=== PATIENT | female | born 1965 | race Caucasian/White ===

== ENCOUNTER → 2019-10-17 10:01 | Outpatient (BNVA) | payer SELFPAY | PROVIDERS: Family Provider Family Medicine; PCP Family Medicine; Visit Provider Family Medicine | DX: D72.819 Decreased white blood cell count, unspecified (principal); Z87.898 Personal history of other specified conditions | CPT/HCPCS: 85025 ==

== ENCOUNTER → 2019-12-03 08:49 | Outpatient (BNVA) | payer SELFPAY | PROVIDERS: Family Provider Family Medicine; PCP Family Medicine; Visit Provider Family Medicine | DX: R00.2 Palpitations (principal) | CPT/HCPCS: 85025 ==

== ENCOUNTER → 2020-02-06 08:31 | Outpatient (BNVA) | payer SELFPAY | PROVIDERS: Family Provider Family Medicine; PCP Family Medicine; Visit Provider Family Medicine | DX: R00.2 Palpitations (principal); Z87.898 Personal history of other specified conditions | CPT/HCPCS: 85025 ==

== ENCOUNTER → 2020-08-05 09:09 | Outpatient (BNVA) | payer SELFPAY | PROVIDERS: Family Provider Family Medicine; PCP Family Medicine; Visit Provider Family Medicine | DX: R00.2 Palpitations (principal) | CPT/HCPCS: 85025 ==

== ENCOUNTER → 2021-02-02 08:39 | Outpatient (BNVA) | payer OTHER, SELFPAY | PROVIDERS: Family Provider Family Medicine; PCP Family Medicine; Visit Provider Family Medicine | DX: R89.9 Unspecified abnormal finding in specimens from other organs, systems and tissues (principal) | CPT/HCPCS: 80053; 80061; 85025 ==

== ENCOUNTER → 2021-05-25 10:17 | Outpatient (BNVA) | payer OTHER, SELFPAY | PROVIDERS: Family Provider Family Medicine; PCP Family Medicine; Visit Provider Family Medicine | DX: I47.1 Supraventricular tachycardia (principal) | CPT/HCPCS: 80053; 85025 ==

== ENCOUNTER → 2022-04-05 08:18 | Outpatient (BNVA) | payer SELFPAY | PROVIDERS: Family Provider Family Medicine; PCP Family Medicine | DX: Z13.6 Encounter for screening for cardiovascular disorders (principal) | CPT/HCPCS: 80061; 82947; 83036 ==

== ENCOUNTER 2022-11-05 08:57 | Outpatient (CLI) | payer OTHER, SELFPAY ==
--- NOTE | 2022-11-05 09:30 | USCV_ITS ---
Derejeazucena Katarzyna Age: 57 Gender: F : 1965 Exam Date: 11/05/2022 09:37 Ordering Phys: Kaykay Carty Technologist: Maggie Solis [place] [facility] [place] Ind[place]: MVP AND MR BP: 112 / 64 HR: 48 Rhythm: Sinus Technical Quality: Adequate MEASUREMENTS (Male / Female) Normal Values 2D ECHO LV Diastolic Diameter PLAX 4.4 cm 4.2 - 5.9 / 3.9 - 5.3 cm LV Systolic Diameter PLAX 3.3 cm LV Chamber Size 3.2 cm IVS Diastolic Thickness 0.9 cm 0.6 - 1.0 / 0.6 - 0.9 cm IVS Systolic Thickness 1.2 cm LVPW Diastolic Thickness 1.0 cm 0.6 - 1.0 / 0.6 - 0.9 cm LVPW Systolic Thickness 1.2 cm RV Chamber Size 3.1 cm LVOT Diameter 2.0 cm LV Ejection Fraction 2D Teich 51.1 % LV Ejection Fraction MOD 2C 50.2 % LV Ejection Fraction 2C AL 50.7 % LA Diameter 2.9 cm LA Width 3.0 cm LA Height 3.3 cm RA Width 3.2 cm RA Height 3.2 cm Aorta at Sinotubular Diameter 3.5 cm IVC Diameter 1.4 cm M-MODE Aortic Annulus Diameter 3.6 cm LA Ao Ratio MM 0.9 MV E Point Septal Separation 0.4 cm DOPPLER AV Peak Velocity 106.3 cm/s LVOT Peak Velocity 73.3 cm/s AV Area Cont Eq vti 2.0 cm squared AV Area Cont Eq pk 2.2 cm squared MV Area PHT 2.6 cm squared Mitral E to A Ratio 1.5 MV E' Velocity 44.0 cm/s Mitral E to MV E' Ratio 6.1 Mitral E to LV E' Lateral Ratio 6.3 Mitral E to LV E' Septal Ratio 6.0 TR Peak Velocity 208.1 cm/s TR Peak Gradient 17.3 mmHg TR Mean Velocity 166.6 cm/s TR Mean Gradient 11.9 mmHg TR Velocity Time Integral 65.9 cm TV Peak E Velocity 45.0 cm/s Right Atrial Pressure 3.0 mmHg Pulmonary Artery Systolic Pressu 20.3 mmHg RV Acceleration Time 0.2 s RV Ejection Time 0.4 s RV AcT/ET 0.4 FINDINGS Left Ventricle Left ventricle is normal in size. LV systolic function is mildly reduced with EF of 45-50%. Mild global hypokinesis seen. Right Ventricle Normal in size and function Right Atrium Normal in size Left Atrium Dilated Mitral Valve Mitral valve prolapse is seen. Mild to moderate mitral regurgitation seen. Aortic Valve Structurally normal aortic valve. No significant stenosis or regurgitation seen. Tricuspid Valve Mild tricuspid regurgitation. Pulmonary artery systolic pressure is normal. Pulmonic Valve Not well visualized. Mild pulmonic regurgitation Pericardium Trivial pericardial effusion Aorta Normal in size IVC Appears to be normal CONCLUSIONS LV systolic function is mildly reduced with EF of 45 to 50%. Left atrial dilation Mild to moderate mitral regurgitation Mild tricuspid regurgitation Mild pulmonic regurgitation Trivial pericardial effusion. No comparison studies are available. Shayan Cullen MD (Electronically Signed) Final Date: 19 November 2022 15:15 S
== END 2022-11-05 08:58 | disposition home or self-care (01) ==
PROVIDERS: PCP Family Medicine; Visit Provider Nurse Practitioner Family
DX: I47.1 Supraventricular tachycardia (principal); Z86.79 Personal history of other diseases of the circulatory system
CPT/HCPCS: 93306

== ENCOUNTER 2022-12-13 06:16 | Outpatient (CLI) | payer OTHER, SELFPAY ==
--- NOTE | 2022-12-13 | ECG_ITS ---
[facility] Test Date: 2022-12-13 Pat Name: Katarzyna Christianson Department: Room: Gender: Female Development Mechanic: Kassie Sifuentes : 1965 Requested By: Kaykay Carty Order Number: [id number] King MD: Nikki Pratt M.D. Interpretive Statements NAME OF STUDY: LEXISCAN SESTAMIBI STRESS TEST INDICATION: SVT, CHF, PROCEDURE: At the baseline, the EKG revealed normal sinus rhythm with a normal ST Ts. The baseline heart was 71 bpm with a blood pressue of 126/71 mm of Hg Lexiscan was infused over a period of 20 seconds. A total of 0.4 milligrams of Lexiscan was infused. The stress phase was continued for a total of 5 minutes. Heart rate at the end of the stress phase was 91 bpm with a blood pressure 114/65 mm of Hg. The EKG at the peak infusion revealed no significant changes. Sestamibi was injected 20 seconds after the Lexiscan infusion. Heart rate at the end of the recovery phase was 84 bpm with a blood pressure of 130/68 mm of Hg. CONCLUSION: 1. No significant EKG changes with the LexiScan infusion 2. No LexiScan induced chest pain or cardiac arrhythmia 3. Normal blood pressure and heart rate response 4. Sestamibi/sestamibi perfusion scan pending; see separate report. Electronically Signed On 12-17-2022 14:03:57 CDT by Nikki Pratt M.D. [id number]
[2022-12-13 06:45] VITALS: BMI 21.6
--- NOTE | 2022-12-13 06:46 | NMCV_ITS ---
NM wesley perf SPECT r/s* [id number] Katarzyna Christianson Age: 57 Gender: F : 1965 Exam Date: 12/13/2022 07:54 Ordering Phys: Kaykay Carty Technologist: YASSINE Rasheed Exam Location: [facility] Indications: SUPRAVENTRICULAR TACHYCARDIA, LEFT VENTRICULAR FAILURE STRESS TEST Please see separate stress test report in [facility] for full findings IMAGE PROTOCOL Rest/Stress 1 Lexiscan Day Radiopharmaceutical Dose (mCi) Administration Site Administered by Rest: Tc-99m 10.6 IV YASSINE Martinez Sestamibi Stress:Tc-99m 32.4 IV YASSINE Rasheed Sestamiviolette Rest: 13-Dec-2022 60 Discovery 630 Stress: 13-Dec-2022 30 Discovery 630 0.4mg Lexiscan. Images obtained in supine and prone position. SPECT RESULTS Technical Quality: Excellent Raw Data Analysis: Normal Image Corrections: No attenuation or motion correction applied Summed Stress Score: 0 Summed Rest Score: 0 Summed Difference Score: 0 PERFUSION FINDINGS Fairly uniform myocardial tracer uptake. No significant perfusion abnormalities FUNCTIONAL RESULTS (calculated via Gated SPECT) Stress Image LV EF (%): 79 Stress EDV (mL):68 TID: 0.8 Stress ESV (mL):14 FUNCTIONAL FINDINGS: segmental wall motion analysis revealing no gross wall motion abnormalities IMPRESSIONS 1. Unremarkable Myocardial perfusion imaging 2. Normal LV ejection fraction of 79%. 3. LV wall motion analysis revealing no gross wall motion abnormalities. 4. Normal LV volume. No similar previous studies are available for comparison Dr Nikki Pratt MD [facility] (Electronically Signed) Final Date: 13 December 2022 17:18 S
[2022-12-13] MEDS: regadenoson 0.4 Mg/5 ml Syringe IVP (08:51)
[2022-12-13 09:00] VITALS: BP 130/68; PULSE 76
== END 2022-12-13 06:17 | disposition home or self-care (01) ==
LOC: CDL 06:18
PROVIDERS: PCP Family Medicine; Visit Provider Nurse Practitioner Family
DX: I47.10 Supraventricular tachycardia, unspecified (principal); I50.1 Left ventricular failure, unspecified
CPT/HCPCS: 36415; 78452; 93017; 96374; A9500; J2785

== ENCOUNTER 2023-03-07 09:38 | Outpatient (CLI) | payer OTHER, SELFPAY ==
--- NOTE | 2023-03-07 09:42 | XRR_ITS ---
PROCEDURE INFORMATION: Exam: XR Chest Exam date and time: 03/07/2023 9:49 AM Age: 58 years old Clinical indication: Dyspnea; Patient HX: Trouble getting a full breath. This has been happening for 1 year and getting worse; Additional info: Dyspnea at rest as well as w exertion TECHNIQUE: Imaging protocol: Radiologic exam of the chest. Views: 2 views. COMPARISON: No relevant prior studies available. FINDINGS: Lungs: Hyperexpansion. No consolidation. A few minute calcified lung nodules are seen incidentally. Pleural spaces: Unremarkable. No pleural effusion. No pneumothorax. Heart/Mediastinum: Unremarkable. No cardiomegaly. Bones/joints: Unremarkable. XR/XR chest 2V* [id number] IMPRESSION: No acute findings.
== END 2023-03-07 09:39 | disposition home or self-care (01) ==
LOC: RAD 09:39
PROVIDERS: PCP Family Medicine; Visit Provider Family Medicine
DX: Z86.79 Personal history of other diseases of the circulatory system (principal); R00.2 Palpitations; R06.00 Dyspnea, unspecified
CPT/HCPCS: 71046; 80053; 85025

== ENCOUNTER 2023-03-09 10:45 | Outpatient (CLI) | payer OTHER, SELFPAY | END 2023-03-09 10:46 | disposition home or self-care (01) | LOC: RT 10:46 | PROVIDERS: PCP Family Medicine; Visit Provider Family Medicine | DX: R06.02 Shortness of breath (principal) | CPT/HCPCS: 94010; 94726; 94729 ==

== ENCOUNTER → 2023-04-01 09:06 | Outpatient (BNVA) | payer OTHER, SELFPAY | PROVIDERS: PCP Family Medicine; Referring Provider Family Medicine; Visit Provider Internal Medicine Pulmonary Disease | DX: R06.02 Shortness of breath (principal); R53.83 Other fatigue | CPT/HCPCS: 36415; 82785; 84439; 84443; 86003 ==

== ENCOUNTER 2024-05-07 11:46 | Outpatient (CLI) | payer OTHER, SELFPAY ==
[2024-05-07 12:34] LABS: Basophils % 1.2 %; Eosinophils # 0.1 10^3/uL (0.0-0.8); Eosinophils % 2.1 %; Hematocrit 36.9 % (36-47); Lymphocytes # 1.1 10^3/uL (0.8-4.8); Lymphocytes % 31.3 %; Mean Corpuscular Hemoglobin 31.8 pg (27-33); Mean Corpuscular Volume 99.5 fl (85-98); Mean Platelet Volume 10.7 fL (7.4-10.4); Monocytes # 0.3 10^3/uL (0.2-0.9); Monocytes % 8.1 %; Neutrophils # 1.91 10^3/uL (1.8-7.7); Nucleated Red Blood Cells % 0 %; Platelet Count 248 10^3/cmm (157-399); Red Blood Count 3.71 10^6/uL (3.85-5.65); Red Cell Distribution Width 11.8 % (12.1-15.1); White Blood Count 3.35 10^3/uL (3.29-11.43)
[2024-05-07 13:05] LABS: Alanine Aminotransferase 18 U/L (0-33); Albumin Level 4.4 g/dL (3.5-5.2); Alkaline Phosphatase 64 U/L (35-105); Anion Gap 13.1 (5-19); Aspartate Amino Transferase 18 U/L (0-32); Blood Urea Nitrogen 9 mg/dL (8-23); Calcium 9.3 mg/dL (8.5-10.5); Carbon Dioxide 28 mmol/L (22-29); Chloride 103 mmol/L (98-107); Globulin 2.6 g/dL (1.3-4.6); Glomerular Filtration Rate 101.6 mL/min (90-130); Glucose 96 mg/dL (65-115); Osmolality Calculated 289 mOsm/kg (285-295); Potassium 4.1 mmol/L (3.5-5.1); Sodium 140 mmol/L (136-145); Thyroid Stimulating Hormone 1.83 uIU/mL (0.27-4.20); Total Bilirubin 0.4 mg/dL (0.15-1.2)
== END 2024-05-07 11:47 | disposition home or self-care (01) ==
LOC: LAB 11:49
PROVIDERS: PCP Internal Medicine; Visit Provider Internal Medicine
DX: Z71.89 Other specified counseling (principal)
CPT/HCPCS: 36415; 80053; 82088; 84443; 85025

== ENCOUNTER 2024-05-09 09:53 | Outpatient (CLI) | payer OTHER, SELFPAY | END 2024-05-09 09:54 | disposition home or self-care (01) | LOC: LAB 09:56 | PROVIDERS: PCP Internal Medicine; Visit Provider Internal Medicine | DX: Z71.89 Other specified counseling (principal) | CPT/HCPCS: 82530 ==